=== PATIENT | female | born 1975 | race Caucasian/White ===

== ENCOUNTER 2017-01-17 16:53 | Emergency (ER) | payer OTHER ==
[~2017-01-17] VITALS: Ht 162.6 cm; Wt 61.2 kg
[~2017-01-17 16:53] MED LIST: AMOX1TAB61 PO
[2017-01-17 18:38] LABS: BILIRUBIN,URINE NEGATIVE (NEG); GLUCOSE,URINE NEGATIVE (NEG); NITRITE,URINE NEGATIVE (NEG); PH,URINE 6.5; PROTEIN,URINE NEGATIVE (NEG-TRACE); UROBILINOGEN,URINE 0.2 mg/dL (0.2 mg/dL)
[2017-01-17 18:45] LABS: BACTERIA,URINE 0 /HPF (0-FEW); RBC,URINE 0 /HPF (0-2); SQUAMOUS EPITHELIAL CELL,UR FEW /LPF; WBC,URINE OCC /HPF (0-4)
[2017-01-17] MEDS ORDERED: ONDANSETRON ODT 4 MG TAB.RAPDIS. PO ONE (18:45)
[2017-01-17] MEDS ORDERED: MORPHINE SULFATE 10 MG/ML VIAL. IM ONE (18:45)
--- NOTE | 2017-01-17 20:13 | RAD ---
Pelvic and transvaginal ultrasound HISTORY: Pelvic pain in the midline for 2 hours COMPARISON: FINDINGS: Multiple transabdominal sonographic images of the pelvis are submitted. Uterus measured 9.3 x 4.8 x 6.1 cm. Endometrium measured 1.1 cm. Neither ovary was visualized. Transvaginal ultrasound: Multiple transvaginal sonographic images of the pelvis are submitted. Uterus measured 10.5 x 4.6 x 5.4 cm. Endometrium measured 1.5 cm, not associated with significant hypervascularity. Right ovary measured 1.9 x 3.2 x 1.6 cm with normal resistance vascularity. Left ovary could not be visualized. IMPRESSION: 1. Endometrium is thickened although not associated with significant hypervascularity. Hyperplasia is possible. 2. Left ovary could not be visualized. Electronically signed by: Ric Starks MD (01/17/2017 8:10 PM)
[2017-01-17] MEDS ORDERED: HYDR-971 PO ×2 (20:47→20:49)
--- NOTE | 2017-01-17 20:47 | PHYS DOC ---
Past Medical History Past Medical History: No Pertinent History Past Surgical History: Other Additional Past Surgical Histo: Breast augmentation. Alcohol Use: Occasionally Drug Use: None Adult General Chief Complaint Chief Complaint: ABDOMINAL PAIN HPI HPI Patient is a 41 year old female who presents with moderate lower abdominal pain and cramping that has been going on intermittently for 2 days. Patient denies any chance she is . Denies any urgency frequency or dysuria. Denies any nausea vomiting. Denies any concerns for STDs. PCP Dr. Raisa Nash [employer] Dr. Cannon Review of Systems Review of Systems Constitutional: Denies fever or chills [] Eyes: Denies change in visual acuity, redness, or eye pain [] HENT: Denies nasal congestion or sore throat [] Respiratory: Denies cough or shortness of breath [] Cardiovascular: No additional information not addressed in HPI [] GI: abdominal cramping, pelvic pain : Denies dysuria or hematuria [] Musculoskeletal: Denies back pain or joint pain [] Integument: Denies rash or skin lesions [] Neurologic: Denies headache, focal weakness or sensory changes [] Endocrine: Denies polyuria or polydipsia [] Current Medications Current Medications Current Medications Medications (Trade) Dose Ordered Sig/Sunni Start Time Stop Time Status Last Admin Dose Admin Morphine Sulfate 5 mg 1X ONCE 01/17/17 18:45 01/17/17 18:46 DC 01/17/17 18:30 5 MG Ondansetron HCl (Zofran Odt) 4 mg 1X ONCE 01/17/17 18:45 01/17/17 18:46 DC 01/17/17 18:30 4 MG Allergies Allergies Allergies Coded Allergies Type Severity Reaction Last Updated Verified No Known Drug Allergies 01/17/17 No Physical Exam Physical Exam Constitutional: Well developed, well nourished, no acute distress, non-toxic appearance. [] HENT: Normocephalic, atraumatic, bilateral external ears normal, oropharynx moist, no oral exudates, nose normal. [] Eyes: PERRLA, EOMI, conjunctiva normal, no discharge. [] Neck: Normal range of motion, no tenderness, supple, no stridor. [] Cardiovascular:Heart rate regular rhythm, no murmur [] Lungs & Thorax: Bilateral breath sounds clear to auscultation [] Abdomen: Bowel sounds normal, soft, no tenderness, no masses, no pulsatile masses. [] Pelvic exam External pelvic appears normal, cervix is closed, no CMT. No adnexal tenderness. Trace amount of clear white discharge in the vaginal vault. Skin: Warm, dry, no erythema, no rash. [] Back: No tenderness, no CVA tenderness. [] Extremities: No tenderness, no cyanosis, no clubbing, ROM intact, no edema. [] Neurologic: Alert and oriented X 3, normal motor function, normal sensory function, no focal deficits noted. [] Psychologic: Affect normal, judgement normal, mood normal. [] Current Patient Data Vital Signs Vital Signs Date Time Temp Pulse Resp B/P (MAP) Pulse Ox O2 Delivery O2 Flow Rate FiO2 01/17/17 19:30 57 16 120/65 (83) 97 01/17/17 17:57 98.3 Room Air 98.3 Lab Values Laboratory Tests Test 01/17/17 17:18 Urine Collection Type Unknown Urine Color Yellow Urine Clarity Clear Urine pH 6.5 Urine Specific [place] <=1.005 Urine Protein Negative mg/dL (NEG-TRACE) Urine Glucose (UA) Negative mg/dL (NEG) Urine Ketones (Stick) Negative mg/dL (NEG) Urine Blood Negative (NEG) Urine Nitrite Negative (NEG) Urine Bilirubin Negative (NEG) Urine Urobilinogen Dipstick 0.2 mg/dL (0.2 mg/dL) Urine Leukocyte Esterase Negative (NEG) Urine RBC 0 /HPF (0-2) Urine WBC Occ /HPF (0-4) Urine Squamous Epithelial Cells Few /LPF Urine Bacteria 0 /HPF (0-FEW) Microbiology 01/17/17 Wet Prep - Final, Complete EKG EKG [] Radiology/Procedures Radiology/Procedures []PROCEDURE: PELVIS W/TV Pelvic and transvaginal ultrasound HISTORY: Pelvic pain in the midline for 2 hours COMPARISON: FINDINGS: Multiple transabdominal sonographic images of the pelvis are submitted. Uterus measured 9.3 x 4.8 x 6.1 cm. Endometrium measured 1.1 cm. Neither ovary was visualized. Transvaginal ultrasound: Multiple transvaginal sonographic images of the pelvis are submitted. Uterus measured 10.5 x 4.6 x 5.4 cm. Endometrium measured 1.5 cm, not associated with significant hypervascularity. Right ovary measured 1.9 x 3.2 x 1.6 cm with normal resistance vascularity. Left ovary could not be visualized. IMPRESSION: 1. Endometrium is thickened although not associated with significant hypervascularity. Hyperplasia is possible. 2. Left ovary could not be visualized. Electronically signed by: Jaja Pinzon MD (01/17/2017 8:10 PM) DICTATED and SIGNED BY: JAJA PINZON MD DATE: 01/17/172007 CC: KARL NASH MD; NATALIE IVEY APRN ~ Course & Med Decision Making Course & Med Decision Making Pertinent Labs and Imaging studies reviewed. (See chart for details) Patient is in the ED with pelvic pain for 2 days. Negative urine hCG, urine analysis is negative for infection. Wet prep negative for acute findings. Pelvic ultrasound was noted for the weekend endometrium, and possibility for hyperplasia. Left ovary could not be visualized. Patient states they have had trouble finding her ovaries before. She does not have left adnexal tenderness. Patient is an [employer]. We recommended she follows up on Friday week. She was discharged with hydrocodone as needed for severe pain and Ibuprofen. Dragon Disclaimer Dragon Disclaimer This electronic medical record was generated, in whole or in part, using a voice recognition dictation system. Departure Departure Impression: Primary Impression: Pelvic pain Disposition: HOME, SELF-CARE Condition: STABLE Referrals: KARL NASH MD (PCP) HAILEY GUAN MD follow up with your obgyn on Friday Patient Instructions: Abdominal Pain Additional Instructions: You were seen for pelvic pain. Your pelvic ultrasound was concerning for hyperplasia which is increased in cells in your uterus. We highly recommend you follow-up with an [employer] on Friday and have them look into this. We sent you home with pain medications. Take them as prescribed. Come back to the ED at any point symptoms worsen. Scripts Hydrocodone/Apap 5-325 (NORCO 5-325 TABLET) 1 Each Tablet 1-2 TAB PO Q4-6HRS, #15 TAB Prov: NATALIE IVEY APRN 01/17/17 NATALIE IVEY APRN January 17, 2017 20:47
[2017-01-17 20:54] VITALS: BP 145/74
== END 2017-01-17 20:55 | disposition home or self-care (01) ==
LOC: ER 16:53
DX: R10.2 Pelvic and perineal pain (principal)
CPT/HCPCS: 76830; 76856; 81001; 84703; 87491; 87591; 96372; 99285; J2270; Q0111; Q0162; 81025

== ENCOUNTER → 2021-04-16 | Outpatient (CLI) | payer OTHER ==
[~2021-04-16] MED LIST changes: +HYDR-3164 PO
--- NOTE | 2021-04-16 11:38 | KCIC ---
Exam Date: 04/16/2021 8:41 AM MRI LEFT LOWER EXTREMITY JOINT WITHOUT Indication: Reason: LEFT KNEE PAIN / Spl. Instructions: / History: Medial and lateral knee pain, swe lling. Twisting injury last November.. TECHNIQUE: Routine multiplanar MR imaging of the knee was performed without contrast. COMPARISON: Radiographs from April 10, 2021 FINDINGS: Complex tearing is noted involving the body of the medial meniscus extending to the inferior articula r surface. The lateral meniscus is intact and within normal limits for age. The anterior cruciate ligament, posterior cruciate ligament, medial collateral ligament, and lateral collateral ligament complex are intact. Patellofemoral extensor mechanism and popliteus tendon are w ithin normal limits. Mild tricompartment chondral thinning is seen. No full thickness chondral defects are identified. B one marrow demonstrates benign signal on all sequences. No acute fracture is seen. Small osteophyte s are noted. There is a small joint effusion. There is no popliteal cyst. IMPRESSION: Complex tearing of the medial meniscus. Mild degenerative changes noted. Small joint effusion noted. Electronically signed by: Tee Escobar MD (04/16/2021 11:36 AM) [facility]
== END ==
LOC: KCIC MRI 08:32
PROVIDERS: ATTEND Orthopaedic Surgery
DX: S83.232A Complex tear of medial meniscus, current injury, left knee, initial encounter (principal); M17.12 Unilateral primary osteoarthritis, left knee; M25.462 Effusion, left knee; M25.762 Osteophyte, left knee; X58.XXXA Exposure to other specified factors, initial encounter; Y93.89 Activity, other specified; Y92.89 Other specified places as the place of occurrence of the external cause; Y99.8 Other external cause status
CPT/HCPCS: 73721

== ENCOUNTER 2021-05-15 06:06 | Day surgery (SDC) | payer OTHER ==
[~2021-05-15] VITALS: Ht 165.1 cm; Wt 76.3 kg
[~2021-05-15 06:06] MED LIST changes: +HYDROmorphone 2 MG/ML VIAL IVP PRN; +IV RINGERS,LACTATED 1000ML 1,000 ML IV SCH; +PROCHLORPERAZINE 10 MG/2 ML VIAL. IVP PRN; +fentaNYL PF VIAL 100 MCG/2 ML VIAL IVP PRN
[2021-05-15 06:30] VITALS: BP 147/85
[2021-05-15] MEDS ORDERED: IBUP-1060 PO (06:30)
[2021-05-15] MEDS ORDERED: BUPIVACAINE-EPI 0.5% 30 ML VIAL KIT. ONE (06:55)
[2021-05-15] MEDS ORDERED: PROPOFOL 10 MG/ML (20ML) VIAL. IV ONE (07:05)
[2021-05-15] MEDS ORDERED: DEXAMETHASONE SOD PHOS 4 MG/ML VIAL ONE (07:05)
[2021-05-15] MEDS ORDERED: LIDOCAINE 2% PF 5 ML VIAL. ONE (07:05)
[2021-05-15] MEDS ORDERED: ONDANSETRON PF 4 MG/2 ML VIAL. ONE (07:05)
[2021-05-15] MEDS ORDERED: MIDAZOLAM HCL/PF 2 MG/2 ML VIAL. ONE (07:06)
[2021-05-15] MEDS ORDERED: fentaNYL PF VIAL 100 MCG/2 ML VIAL ONE ×2 (07:06→08:46)
[2021-05-15] MEDS ORDERED: HYDR-2763 PO (08:40)
[2021-05-15] MEDS ORDERED: MORPHINE SULFATE 2 MG/ML INJ. ONE (08:53)
[2021-05-15] MEDS: MORPHINE SULFATE 2 MG/ML INJ. IVP PRN ×2 (09:05→09:15)
[2021-05-15] MEDS: fentaNYL PF VIAL 100 MCG/2 ML VIAL IVP PRN ×2 (09:05→09:15)
[2021-05-15] MEDS ORDERED: HYDROcodone/APAP 7.5/325MG 1 TAB TABLET PO ONE (09:15)
[2021-05-15 09:45] VITALS: BP 121/66
--- NOTE | 2021-05-15 09:50 | PDOC4 ---
OPERATIVE NOTE: SURGERY DATE: May 15, 2021 SURGERY PERFORMED: Left knee scope with partial medial meniscectomy POST-OPERATIVE DIAGNOSIS: Left knee medial meniscus tear SURGEON: Mukesh Ruelas D.O. OPEN CLAIMS REPRESENTATIVE: None EBL: <50cc SPECIMEN: None IMPLANTS: None GROSS FINDINGS: Complex tear of the undersurface of the medial meniscus in the posterior horn. Mild degenerative changes in the medial compartment. ANESTHESIA: General PROCEDURE: After obtaining full and informed consent from the patient, patient was brought to the operating room and placed on the table in the supine position. General anesthesia was induced without complication. Perioperative antibiotics were used. The tourniquet was placed around the proximal thigh. Timeout was observed. The knee was then prepped and draped in the normal sterile fashion. Standard thigh post was used. Anterolateral and anteromedial portals were established for diagnostic arthroscopy. The Joint was insufflated with saline using an arthroscopic cannula. We visualized the suprapatellar pouch, the patellofemoral articulation, the medial and lateral gutter, the medial and lateral compartment, and the intercondylar notch. The above noted gross findings were encountered. At this point we addressed the tear of the medial meniscus. Basket forceps and a motorized shaver were used to debride the meniscus back to a stable rim and further contoured with a motorized shaver. At the conclusion of the procedure, the arthroscopic equipment was removed. The incisions were injected with 0.25% Marcaine and then closed. Sterile dressings were placed. Sponge and needle counts were noted to be correct. The patient tolerated the procedure well and there were no complications. The patient was awakened in the operating room before being transferred to the recovery room in stable condition. DISPOSITION: TO PACU STABLE PROGNOSIS: FAIR. HENRIK RUELAS DO May 15, 2021 9:50 am
== END 2021-05-15 09:45 | disposition home or self-care (01) ==
LOC: SURG 06:06
PROVIDERS: ATTEND Orthopaedic Surgery
DX: S83.232A Complex tear of medial meniscus, current injury, left knee, initial encounter (principal); M17.12 Unilateral primary osteoarthritis, left knee; F17.210 Nicotine dependence, cigarettes, uncomplicated; Z90.710 Acquired absence of both cervix and uterus; Z98.890 Other specified postprocedural states; Z79.899 Other long term (current) drug therapy; Z72.89 Other problems related to lifestyle; X58.XXXA Exposure to other specified factors, initial encounter; Y93.89 Activity, other specified; Y92.89 Other specified places as the place of occurrence of the external cause; Y99.8 Other external cause status
CPT/HCPCS: 29881; A4930; J0690; J1100; J2250; J2270; J2405; J2704; J3010